=== PATIENT | female | born 1965 | race Caucasian/White ===

== ENCOUNTER 2017-01-20 14:59 | Emergency (ER) | payer MEDICAID ==
[~2017-01-20] VITALS: Ht 162.6 cm; Wt 101.6 kg
[~2017-01-20 14:59] MED LIST: FESO4TAB PO; LORA1TAB PO; PRX25T PO; TRISPRINTEC PO
[2017-01-20 15:33] LABS: BILIRUBIN,URINE NEGATIVE (NEGATIVE); KETONES,URINE NEGATIVE (NEGATIVE); LEUKOCYTE ESTERASE ,URINE 3+ (NEGATIVE); NITRITE,URINE NEGATIVE (NEGATIVE); PH,URINE 8 (5-9); PROTEIN,URINE 2+ (NEGATIVE); UROBILINOGEN,URINE NORMAL (NORMAL)
[2017-01-20 15:42] LABS: SQUAMOUS EPITHELIAL CELL,UR 25-50 /HPF
[2017-01-20] MEDS ORDERED: PHEN-640 PO ×2 (15:46→15:54)
[2017-01-20] MEDS ORDERED: NITR-65 PO ×2 (15:46→15:54)
--- NOTE | 2017-01-20 15:46 | ED GU-Female ---
General Chief Complaint: -Female Stated Complaint: FEVER Nursing Triage Note: AMBULATED TO ROOM 07 WITH COMPLAINTS OF UTI SX INCLUDING FEVER OF 100 STARTING ON FRIDAY. LAST DOSE OF IBUPROFEN WAS YESTERDAY. Nursing Sepsis Screen: No Definite Risk Source: patient History of Present Illness Time seen by provider: 15:20 Initial Comments PT C/O UTI SYMPTOMS SINCE Friday01/17/17 C/O PAIN / BURNING ON URINATION, URGENCY, FREQUENCY AND SMALL AMOUNTS C/O LOWER ABDOMINAL DISCOMFORT C/O MILD NAUSEA/NO APPETITE C/O MILD GENERALIZED WEAKNESS HAS HAD SUBJECTIVE FEVER--DID NOT TAKE TEMPERATURE AT HOME--FAMILY MEMBER "GUESSED IT WAS AROUND 100" TOOK 1 DOSE OF ADVIL TOTAL --LAST EVENING LMP--MENOPAUSAL PCP: DR. TAYLOR [facility] [place] Allergies and Home Medications Allergies Uncoded Allergies: SELINA (Adverse Reaction, Severe, DYSPNEA, 03/01/11) Home Medications Nitrofurantoin Monohyd/M-Cryst 100 Mg Capsule, 100 MG PO BID, #20 Prescribed by: DOMINIQUE BOYER on 01/20/17 1554 Phenazopyridine HCl 200 Mg Tablet, 1 TAB PO TID, #15 Prescribed by: DOMINIQUE BOYER on 01/20/17 1554 Constitutional: see HPI, fever, weakness Respiratory: no symptoms reported Cardiovascular: no symptoms reported Gastrointestinal: see HPI, abdominal pain, No diarrhea, loss of appetite, nausea, No vomiting Genitourinary: see HPI, burning, dysuria, frequency, denies flank pain, pain, urgency : No Musculoskeletal: no symptoms reported, No back pain Skin: no symptoms reported Psychiatric/Neurological: No Symptoms Reported Endocrine: No Symptoms Reported Hematologic/Lymphatic: No Symptoms Reported Past Eradhcc-Pcmdpm-Cysbsf Hx Patient Social History Alcohol Use: Denies Use Recreational Drug Use: No Smoking Status: Never a Smoker Recent Foreign Travel: No Contact w/Someone Who Travel: No Recent Infectious Disease Expo: No Surgeries HX Surgeries: Yes (D&C) Respiratory Hx Respiratory Disorders: No Cardiovascular Hx Cardiac Disorders: Yes (quit taking bp med as prescribed.) Cardiac Disorders: Hypertension Neurological Hx Neurological Disorders: No Reproductive System : No 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 Genitourinary Hx Genitourinary Disorders: No Gastrointestinal Hx Gastrointestinal Disorders: No Musculoskeletal Hx Musculoskeletal Disorders: No Endocrine Hx Endocrine Disorders: Yes (QUIT TAKING MEDICATIONS) Endocrine Disorders: Diabetes, Non-Insulin dep HEENT HX ENT Disorders: No Cancer Hx Cancer: No Psychosocial Hx Psychiatric Problems: Yes Behavioral Health Disorders: Bipolar Integumentary HX Skin/Integumentary Disorder: No Blood Transfusions Hx Blood Disorders: No Physical Exam Vital Signs Vital Sign - Last 12Hours 01/20/17 15:25 Temp 98.9 Pulse 83 Resp 16 B/P (MAP) 172/96 Pulse Ox 98 Capillary Refill : Less Than 3 Seconds General Appearance: WD/WN, no apparent distress, obese, other (VERY MALODOROUS- -BODY ODOR AND CAT URINE. PT DOES NOT MAKE EYE CONTACT--CLOSES EYES WHEN SHE IS TALKING, BUT IS SMILING) Cardiovascular: regular rate, rhythm, no murmur Respiratory: normal breath sounds, no respiratory distress, no accessory muscle use Gastrointestinal: normal bowel sounds, non tender, soft Back: normal inspection, no CVA tenderness Extremities: normal inspection, no pedal edema, normal capillary refill Neurologic/Psychiatric: maintenance representative II-XII nml as tested, no motor/sensory deficits, alert, normal mood/affect, oriented x 3 Skin: normal color, warm/dry Progress/Results/Core Measures Results/Orders Lab Results Laboratory Tests Test 01/20/17 15:26 Range/Units Urine Color YELLOW Urine Clarity SLIGHTLY CLOUDY Urine pH 8 5-9 Urine Specific [place] 1.015 L 1.016-1.022 Urine Protein 2+ H NEGATIVE Urine Glucose (UA) NEGATIVE NEGATIVE Urine Ketones NEGATIVE NEGATIVE Urine Nitrite NEGATIVE NEGATIVE Urine Bilirubin NEGATIVE NEGATIVE Urine Urobilinogen NORMAL NORMAL MG/DL Urine Leukocyte Esterase 3+ H NEGATIVE Urine RBC (Auto) NEGATIVE NEGATIVE Urine RBC NONE /HPF Urine WBC 5-10 H /HPF Urine Squamous Epithelial Cells 25-50 H /HPF Urine Crystals NONE /LPF Urine Bacteria FEW H /HPF Urine Casts NONE /LPF Urine Mucus SMALL H /LPF Urine Culture Indicated YES My Orders Orders - DOMINIQUE BOYER DO Ua Culture If Indicated (01/20/17 15:25) Urine Culture (01/20/17 15:26) Vital Signs/I&O Vital Sign - Last 12Hours 01/20/17 01/20/17 15:25 15:58 Temp 98.9 Pulse 83 77 Resp 16 16 B/P (MAP) 172/96 Pulse Ox 98 96 Blood Pressure Mean: 121 Departure Impression Impression: Primary Impression: Urinary tract infection Disposition: HOME, SELF-CARE Condition: Stable Departure-Patient Inst. Referrals: NO,LOCAL PHYSICIAN (PCP/Family) Primary Care Physician Patient Instructions: Urinary Tract Infection, Adult (DC) Add. Discharge Instructions: CLEAR LIQUIDS--NO COFFEE, POP OR TEA TYLENOL AND MOTRIN NEEDED FOR PAIN OR FEVER FOLLOW UP WITH YOUR DR IN 2-3 DAYS IF NO BETTER All discharge instructions reviewed with patient and/or family. Voiced understanding. Scripts Phenazopyridine HCl (Pyridium) 200 Mg Tablet 1 TAB PO TID for BLADDER DISCOMFORT, #15 TAB Prov: DOMINIQUE BOYER DO 01/20/17 Nitrofurantoin Monohyd/M-Cryst (Macrobid 100 mg Capsule) 100 Mg Capsule 100 MG PO BID, #20 CAP Prov: DOMINIQUE BOYER DO 01/20/17 DOMINIQUE BOYER DO Jan 20, 2017 15:46
[2017-01-20 15:58] VITALS: BP 169/86
[2017-01-21] MEDS ORDERED: ONDA4TAB11 PO (16:17)
[2017-01-21] MEDS ORDERED: LISI-552 PO (16:19)
== END 2017-01-20 15:58 | disposition home or self-care (01) ==
LOC: EDUNIT# 14:59 → ER 15:01
DX: N39.0 Urinary tract infection, site not specified (principal); I10 Essential (primary) hypertension; E11.9 Type 2 diabetes mellitus without complications; F31.9 Bipolar disorder, unspecified
CPT/HCPCS: 81000; 87088; 99282

== ENCOUNTER 2017-01-21 13:51 | Emergency (ER) | payer MEDICAID ==
[~2017-01-21] VITALS: Ht 162.6 cm; Wt 101.6 kg
[~2017-01-21 13:51] MED LIST changes: +NITR-65 PO; +PHEN-640 PO
[2017-01-21] MEDS ORDERED: ASPIRIN 81 MG CHEW (CHILDREN'S ASA) PO ONE (14:15)
--- NOTE | 2017-01-21 14:24 | ED General ---
General Chief Complaint: -Female Stated Complaint: WEAKNESS Nursing Triage Note: PT STATES SHE WAS SEEN HERE IN THE ER YESTERDAY AND DX WITH A UTI, HAS NOT GOTTEN HER MEDICATION YET, CC OF CHEST TIGHTNESS, HX OF ASTHMA, "NOT LIKE A HEART ATTACK," FEVER, AND PAINFUL URINATION FOR ABOUT 2 WEEKS. HX OF HYPERTENSION, STATES SHE IS NOT TAKING HER MEDICATION BUT CONTROLING IT WITH DIET. Nursing Sepsis Screen: Possible Sepsis Risk Source of Information: Patient Exam Limitations: Other (poor historian) History of Present Illness Time Seen by Provider: 14:03 Initial Comments 51-year-old female patient presents to the emergency department with complaints of generalized weakness, urinary tract infection, and "chest tightness". States the chest tightness is "not like a heart attack." Patient was seen in the emergency department yesterday by Dr. Butler for urinary tract infection. Patient states she did not picker and packer her medications because "it is a long story. " Patient states they're on their way to picker and packer her medications when she began feeling very weak. Patient reports chest tightness, frequency, dysuria, hesitancy for approximately 2 weeks. Reports intermittent high fevers ranging at 100.0F. Yesterday patient denies using a thermometer for temperature, today states she did use a thermometer. Has not taken any motrin or tylenol for fever. Initially reported asthma history to ED staff, now states she does not have a history of asthma but feels like "asthma is coming on." Patient sees Dr. sung at [facility] in [place], [place]. Has not seen Dr. Sung for approximately 2-3 months. States she is supposed to be on lisinopril, risperidone, and Lamictal, but has not taken the medications for approximately one month. She states "I'm not very good at doctoring." Timing/Duration: Getting Worse, Other (2 weeks) Allergies and Home Medications Allergies Uncoded Allergies: SELINA (Adverse Reaction, Severe, DYSPNEA, 03/01/11) Home Medications Lisinopril 20 Mg Tablet, 20 MG PO DAILY, #10 Ref 0 Prescribed by: CHEY JURADO on 01/21/17 1619 Nitrofurantoin Monohyd/M-Cryst 100 Mg Capsule, 100 MG PO BID, #20 Prescribed by: DOMINIQUE BUTLER on 01/20/17 1554 Ondansetron 4 Mg Tab.rapdis, 4 MG PO Q6H PRN for NAUSEA/VOMITING-1ST LINE, #10 Ref 0 Prescribed by: CHEY JURADO on 01/21/17 1617 Phenazopyridine HCl 200 Mg Tablet, 1 TAB PO TID, #15 Prescribed by: DOMINIQUE BUTLER on 01/20/17 1554 Constitutional: see HPI, No diaphoresis, No dizziness, fever, malaise, weakness EENTM: no symptoms reported Respiratory: see HPI, No cough, No orthopnea, short of breath, No stridor, wheezing Cardiovascular: No chest pain, No edema, No palpitations, No syncope Gastrointestinal: No abdominal pain, No constipation, No diarrhea, nausea, No vomiting Genitourinary: see HPI, dysuria, frequency, No hematuria, hesitancy, No incontinence Musculoskeletal: no symptoms reported Skin: no symptoms reported Psychiatric/Neurological: Denies Headache, Denies Numbness, Denies Paresthesia , Denies Seizure, Denies Tingling, Denies Weakness All Other Systems Reviewed Negative Unless Noted: Yes (Negative excepted noted.) Past Kmdpuhz-Wszqxn-Jvzpox Hx Patient Social History Alcohol Use: Denies Use Recreational Drug Use: Yes (EMOTIONALLY) Smoking Status: Never a Smoker Recent Foreign Travel: No Contact w/Someone Who Travel: No Recent Infectious Disease Expo: No Recent Hopitalizations: No Seasonal Allergies Seasonal Allergies: Yes Surgeries HX Surgeries: Yes (D&C) Respiratory Hx Respiratory Disorders: No Cardiovascular Hx Cardiac Disorders: Yes (quit taking bp med as prescribed.) Cardiac Disorders: Hypertension Neurological Hx Neurological Disorders: No Reproductive System Hx 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 Genitourinary Hx Genitourinary Disorders: No Gastrointestinal Hx Gastrointestinal Disorders: No Musculoskeletal Hx Musculoskeletal Disorders: No Endocrine Hx Endocrine Disorders: Yes (QUIT TAKING MEDICATIONS) Endocrine Disorders: Diabetes, Non-Insulin dep HEENT HX ENT Disorders: No Cancer Hx Cancer: No Psychosocial Hx Psychiatric Problems: Yes Behavioral Health Disorders: Bipolar Integumentary HX Skin/Integumentary Disorder: No Blood Transfusions Hx Blood Disorders: No Reviewed Nursing Assessment Reviewed/Agree w Nursing PMH: Yes Family Medical History Significant Family History: No Pertinent Family Hx Physical Exam Vital Signs Vital Sign - Last 12Hours 01/21/17 13:57 Temp 96.9 Pulse 84 Resp 22 B/P (MAP) 189/108 Pulse Ox 100 O2 Delivery Room Air Capillary Refill : Less Than 3 Seconds General Appearance: No Apparent Distress, WD/WN, Obese, Other (malodorous, smells of cat urine. patient keeps her eyes closed during the majority of the visit. Avoids eye contact.) HEENT: PERRL/EOMI, Pharynx Normal Neck: Normal Inspection, Supple Respiratory: Lungs Clear, Normal Breath Sounds, No Accessory Muscle Use, No Respiratory Distress Cardiovascular: Regular Rate, Rhythm, No Murmur, Normal Peripheral Pulses Gastrointestinal: Normal Bowel Sounds, No Organomegaly, Non Tender, Soft Back: Normal Inspection, No CVA Tenderness Extremity: Normal Capillary Refill, No Pedal Edema Neurologic/Psychiatric: Alert, Oriented x3, No Motor/Sensory Deficits, Normal Mood/Affect, collection agent II-XII Norm as Tested Skin: Normal Color, Warm/Dry, Rash (excoriations on the left superior breast ( patient states this is a yeast infection and her mother has the same rash).) Progress/Results/Core Measures Results/Orders Lab Results Laboratory Tests Test 01/21/17 14:15 01/21/17 15:37 01/21/17 16:17 Range/Units White Blood Count 5.7 4.3-11.0 10^3/uL Red Blood Count 5.27 4.35-5.85 10^6/uL Hemoglobin 13.8 11.5-16.0 G/DL Hematocrit 42 35-52 % Mean Corpuscular Volume 80 80-99 FL Mean Corpuscular Hemoglobin 26 25-34 PG Mean Corpuscular Hemoglobin Concent 33 32-36 G/DL Red Cell Distribution Width 15.1 H 10.0-14.5 % Platelet Count 235 130-400 10^3/uL Mean Platelet Volume 10.5 H 7.4-10.4 FL Neutrophils (%) (Auto) 61 42-75 % Lymphocytes (%) (Auto) 24 12-44 % Monocytes (%) (Auto) 8 0-12 % Eosinophils (%) (Auto) 7 0-10 % Basophils (%) (Auto) 1 0-10 % Neutrophils # (Auto) 3.5 1.8-7.8 X 10^3 Lymphocytes # (Auto) 1.3 1.0-4.0 X 10^3 Monocytes # (Auto) 0.5 0.0-1.0 X 10^3 Eosinophils # (Auto) 0.4 H 0.0-0.3 10^3/uL Basophils # (Auto) 0.0 0.0-0.1 10^3/uL Sodium Level 140 135-145 MMOL/L Potassium Level 3.9 3.6-5.0 MMOL/L Chloride Level 107 98-107 MMOL/L Carbon Dioxide Level 23 21-32 MMOL/L Anion Gap 10 5-14 MMOL/L Blood Urea Nitrogen 12 7-18 MG/DL Creatinine 0.78 0.60-1.30 MG/DL Estimat Glomerular Filtration Rate > 60 BUN/Creatinine Ratio 15 Glucose Level 104 70-105 MG/DL Calcium Level 9.2 8.5-10.1 MG/DL Magnesium Level 1.9 1.8-2.4 MG/DL Total Bilirubin 0.6 0.1-1.0 MG/DL Aspartate Amino Transf (AST/SGOT) 30 5-34 U/L Alanine Aminotransferase (ALT/SGPT) 47 0-55 U/L Alkaline Phosphatase 70 40-136 U/L Total Creatine Kinase 34 29-168 U/L Creatine Kinase MB 0.3 <6.6 NG/ML Myoglobin 23.7 10.0-92.0 NG/ML Troponin I < 0.30 <0.30 NG/ML B-Type Natriuretic Peptide 31.2 <100.0 PG/ML Total Protein 7.2 6.4-8.2 GM/DL Albumin 4.1 3.2-4.5 GM/DL TSH Meagher Testing 2.23 0.35-4.94 UIU/ML Urine Color YELLOW Urine Clarity CLEAR Urine pH 6 5-9 Urine Specific [place] 1.020 1.016-1.022 Urine Protein 1+ H NEGATIVE Urine Glucose (UA) NEGATIVE NEGATIVE Urine Ketones 1+ H NEGATIVE Urine Nitrite NEGATIVE NEGATIVE Urine Bilirubin NEGATIVE NEGATIVE Urine Urobilinogen NORMAL NORMAL MG/DL Urine Leukocyte Esterase NEGATIVE NEGATIVE Urine RBC (Auto) NEGATIVE NEGATIVE Urine RBC RARE /HPF Urine WBC 0-2 /HPF Urine Squamous Epithelial Cells 2-5 /HPF Urine Crystals NONE /LPF Urine Bacteria TRACE /HPF Urine Casts NONE /LPF Urine Mucus MODERATE H /LPF Urine Culture Indicated NO Urine Opiates Screen NEGATIVE NEGATIVE Urine Oxycodone Screen NEGATIVE NEGATIVE Urine Methadone Screen NEGATIVE NEGATIVE Urine Propoxyphene Screen NEGATIVE NEGATIVE Urine Barbiturates Screen NEGATIVE NEGATIVE Ur Tricyclic Antidepressants Screen NEGATIVE NEGATIVE Urine Phencyclidine Screen NEGATIVE NEGATIVE Urine Amphetamines Screen NEGATIVE NEGATIVE Urine Methamphetamines Screen NEGATIVE NEGATIVE Urine Benzodiazepines Screen NEGATIVE NEGATIVE Urine Cocaine Screen NEGATIVE NEGATIVE Urine Cannabinoids Screen NEGATIVE NEGATIVE Prothrombin Time 12.8 12.2-14.7 SEC INR Comment 1.0 0.8-1.4 Activated Partial Thromboplast Time 20 L 24-35 SEC D-Dimer 0.53 H 0.00-0.49 UG/ML My Orders Orders - CHEY JURADO PA Saline Lock/Iv-Start (01/21/17 13:58) Cbc With Automated Diff (01/21/17 13:58) Comprehensive Metabolic Panel (01/21/17 13:58) Drug Screen Stat (Urine) (01/21/17 13:58) Ua Culture If Indicated (01/21/17 13:58) Accucheck Stat ONCE (01/21/17 14:12) Ekg Tracing (01/21/17 14:12) Monitor-Rhythm Ecg Trace Only (01/21/17 14:12) BNP (01/21/17 14:12) Creatine Kinase (01/21/17 14:12) Creatine Kinase Mb (01/21/17 14:12) Fibrin Degradation Products (01/21/17 14:12) Magnesium (01/21/17 14:12) Protime With Inr (01/21/17 14:12) Partial Thromboplastin Time (01/21/17 14:12) Thyroid Analyzer (01/21/17 14:12) Troponin I (01/21/17 14:12) Chest 1 View, Ap/Pa Only (01/21/17 14:12) Myoglobin Serum (01/21/17 14:12) Aspirin Chewable Tablet (Baby Aspirin Ch (01/21/17 14:15) Lisinopril Tablet (Zestril Tablet) (01/21/17 16:30) Medications Given in ED Current Medications Medications Dose Ordered Sig/Silvano Route Start Time Stop Time Status Last Admin Dose Admin Aspirin 324 mg ONCE ONCE PO 01/21/17 14:15 01/21/17 14:16 DC 01/21/17 15:05 324 MG Vital Signs/I&O Vital Sign - Last 12Hours 01/21/17 13:57 Temp 96.9 Pulse 84 Resp 22 B/P (MAP) 189/108 Pulse Ox 100 O2 Delivery Room Air Blood Pressure Mean: 135 ECG Initial ECG Impression Date: Jan 21, 2017 Initial ECG Impression Time: 14:17 Initial ECG Rate: 85 Initial ECG Rhythm: Normal Sinus Initial ECG Comparisson: No Previous ECG Available Comment Sinus rhythm. No STEMI or arrhythmia noted. ECG reviewed and discussed with Dr. Quinonez. Diagnostic Imaging Diagonstic Imaging: Xray Plain Films/CT/US/NM/MRI: chest Comments FINDINGS: There are no prior studies available for comparison. The heart size is within normal limits. The lungs are clear. There is no evidence for failure, pneumonia, or for a pleural effusion to suggest an acute abnormality. The mediastinum is not widened. The osseous structures are intact. IMPRESSION: There is no evidence for an acute cardiopulmonary abnormality. Dictated on workstation # [id number] Reviewed: Reviewed by Me (radiology report reviewed by me. ) Departure Communication Progress Notes 1540 Patient is sitting on the side of the exam bed talking on the phone. Patient is noted to have her eyes open and speaking normally. Upon this examiner entering the room patient gets off the phone. When asked how she feels , patient states "well, I still feel weak." Patient is able to move about without difficulty. Urine sample sent to lab for testing. 1630 d-dimer slightly elevated at 0.53; however, Wells score=0 with low probability for PE. Plan for giving patient 1 dose of lisinopril 20 mg followed by [facility] to home. I have advised the patient to take prescribed medications as directed by her physician and to contact Dr. sung person tomorrow morning for appointment time this week. Impression Impression: Primary Impression: Volume depletion Additional Impressions: Non compliance w medication regimen Hypertension Qualified Codes: I10 - Essential (primary) hypertension Disposition: 01 HOME, SELF-CARE Condition: Improved Departure-Patient Inst. Decision time for Depature: 16:35 Referrals: NO,LOCAL PHYSICIAN (PCP/Family) Primary Care Physician Patient Instructions: Dehydration, Adult (DC), High Blood Pressure (DC) Add. Discharge Instructions: All discharge instructions reviewed with patient and/or family. Voiced understanding. Medications as instructed. Do not miss doses of your usual home medication. Drink plenty of fluids. Avoid the heat. Follow-up with your primary care physician, Dr. Sung, this week for a recheck. Call tomorrow morning for appointment time. Return to the emergency department for worsened symptoms or any other concerns. Scripts Lisinopril (Lisinopril) 20 Mg Tablet 20 MG PO DAILY, #10 TAB 0 Refills Prov: CHEY JURADO 01/21/17 Ondansetron (Ondansetron Odt) 4 Mg Tab.rapdis 4 MG PO Q6H Y for NAUSEA/VOMITING-1ST LINE, #10 TAB 0 Refills Prov: CHEY JURADO 01/21/17 CHEY JURADO Jan 21, 2017 14:24
[2017-01-21 14:25] LABS: BASOPHILS % (AUTO) 1 % (0-10); EOSINOPHILS # (AUTO) 0.4 10^3/uL (0.0-0.3); EOSINOPHILS % (AUTO) 7 % (0-10); LYMPHOCYTES # (AUTO) 1.3 X 10^3 (1.0-4.0); LYMPHOCYTES % (AUTO) 24 % (12-44); MEAN CORPUSCULAR HEMOGLOBIN 26 PG (25-34); MEAN CORPUSCULAR HGB CONC 33 G/DL (32-36); MEAN CORPUSCULAR VOLUME 80 FL (80-99); MEAN PLATELET VOLUME 10.5 FL (7.4-10.4); MONOCYTES # (AUTO) 0.5 X 10^3 (0.0-1.0); MONOCYTES % (AUTO) 8 % (0-12); NEUTROPHILS # (AUTO) 3.5 X 10^3 (1.8-7.8); NEUTROPHILS % (AUTO) 61 % (42-75); PLATELET COUNT 235 10^3/uL (130-400); RED BLOOD COUNT 5.27 10^6/uL (4.35-5.85); RED CELL DISTRIBUTION WIDTH 15.1 % (10.0-14.5); WHITE BLOOD COUNT 5.7 10^3/uL (4.3-11.0)
[2017-01-21 14:48] LABS: ALANINE AMINOTRANSFERASE 47 U/L (0-55); ALBUMIN 4.1 GM/DL (3.2-4.5); ANION GAP 10 MMOL/L (5-14); ASPARTATE AMINO TRANSFERASE 30 U/L (5-34); BILIRUBIN,TOTAL 0.6 MG/DL (0.1-1.0); BLOOD UREA NITROGEN 12 MG/DL (7-18); BUN/CREATININE RATIO 15; CALCIUM 9.2 MG/DL (8.5-10.1); CARBON DIOXIDE 23 MMOL/L (21-32); CHLORIDE 107 MMOL/L (98-107); CREATINE KINASE 34 U/L (29-168); CREATININE SERUM 0.78 MG/DL (0.60-1.30); GFR ESTIMATED > 60; GLUCOSE 104 MG/DL (70-105); MAGNESIUM 1.9 MG/DL (1.8-2.4); POTASSIUM 3.9 MMOL/L (3.6-5.0); SODIUM 140 MMOL/L (135-145); TOTAL PROTEIN 7.2 GM/DL (6.4-8.2)
--- NOTE | 2017-01-21 14:57 | Diagnostic Imaging Report ---
EXAMINATION: Portable erect AP chest at 02:29 p.m. INDICATION: Weakness, chest pain. FINDINGS: There are no prior studies available for comparison. The heart size is within normal limits. The lungs are clear. There is no evidence for failure, pneumonia, or for a pleural effusion to suggest an acute abnormality. The mediastinum is not widened. The osseous structures are intact. IMPRESSION: There is no evidence for an acute cardiopulmonary abnormality. Dictated by: Dictated on workstation # [id number]
[2017-01-21 15:10] LABS: TROPONIN I < 0.30 NG/ML (<0.30)
[2017-01-21 15:44] LABS: BILIRUBIN,URINE NEGATIVE (NEGATIVE); KETONES,URINE 1+ (NEGATIVE); LEUKOCYTE ESTERASE ,URINE NEGATIVE (NEGATIVE); NITRITE,URINE NEGATIVE (NEGATIVE); PH,URINE 6 (5-9); PROTEIN,URINE 1+ (NEGATIVE); UROBILINOGEN,URINE NORMAL (NORMAL)
[2017-01-21 16:02] LABS: WBC,URINE 0-2 /HPF
[2017-01-21] MEDS ORDERED: ONDA4TAB11 PO (16:17)
[2017-01-21] MEDS ORDERED: LISI-552 PO (16:19)
[2017-01-21] MEDS ORDERED: lisINopril 20 MG (ZESTRIL) TAB PO ONE (16:30)
[2017-01-21 16:32] LABS: PROTHROMBIN TIME PATIENT 12.8 SEC (12.2-14.7)
[2017-01-21 17:30] VITALS: BP 162/92
== END 2017-01-21 17:25 | disposition home or self-care (01) ==
LOC: EDUNIT# 13:51 → ER 13:52
DX: I10 Essential (primary) hypertension (principal); E86.9 Volume depletion, unspecified; E11.9 Type 2 diabetes mellitus without complications; F31.9 Bipolar disorder, unspecified; Z91.19 Patient's noncompliance with other medical treatment and regimen
CPT/HCPCS: 36415; 71010; 80053; 80306; 81000; 82550; 82553; 82962; 83735; 83874; 83880; 84443; 84484; 85025; 85379; 85610; 85730; 93041